=== PATIENT | male | born 1985 | race Caucasian/White ===

== ENCOUNTER 2017-08-31 16:30 | Emergency (ER) | payer OTHER ==
[~2017-08-31] VITALS: Ht 167.6 cm; Wt 79.4 kg
== END 2017-08-31 18:05 | disposition home or self-care (01) ==
LOC: ED 16:30
DX: Z00.8 Encounter for other general examination (principal)

== ENCOUNTER 2018-08-14 17:14 | Emergency (ER) | payer OTHER ==
[~2018-08-14] VITALS: Ht 167.6 cm; Wt 79.4 kg
== END 2018-08-14 19:00 | disposition left against medical advice (07) ==
LOC: ED 17:14
DX: M54.5 Low back pain (principal)

== ENCOUNTER 2019-07-19 17:33 | Emergency (ER) | payer OTHER ==
[~2019-07-19] VITALS: Ht 167.6 cm; Wt 79.4 kg
== END 2019-07-19 18:50 | disposition left against medical advice (07) ==
LOC: ED 17:33
DX: N50.812 Left testicular pain (principal); N50.811 Right testicular pain; F17.200 Nicotine dependence, unspecified, uncomplicated; Z88.0 Allergy status to penicillin
CPT/HCPCS: 81001; 99284-25